=== PATIENT | male | born 1950 | race Caucasian/White ===

== ENCOUNTER 2019-06-04 08:44 | Inpatient (IN) | payer MEDICARE, BC ==
[2019-06-04] VITALS (7 sets, daily range): BP systolic 107–118; BP diastolic 61–69
[~2019-06-04] VITALS: Ht 180.3 cm; Wt 78.5 kg
[~2019-06-04 08:44] MED LIST: AMLO5TAB88 PO; ASPI-1497 PO; ATOR20TA PO; COR6 PO; FURO-151 PO; ISOS30TA6 PO; LOSA25TA3 PO; POTA-9 PO; PROT40 PO; SITA50TA3 PO
[2019-06-04] MEDS ORDERED: FISH1CAP34 PO (09:23)
[2019-06-04] MEDS ORDERED: RANI-655 MT (09:23)
[2019-06-04] MEDS ORDERED: IODIXANOL 320MG/ML 100 ML BOTTLE IV ONE (09:48)
[2019-06-04] MEDS ORDERED: LIDOCAINE HCL 1% 20ML VIAL (Pyxis) INJ ONE (09:48)
[2019-06-04] MEDS ORDERED: MIDAZOLAM HCL 2 MG/2 ML VIAL ONE (09:49)
[2019-06-04] MEDS ORDERED: FENTANYL CITRATE/PF 50MCG/ML 2ML VIAL ONE (09:49)
[2019-06-04] MEDS ORDERED: HEPARIN SODIUM 1,000 UNIT/1ML VIAL IV ONE (10:22)
[2019-06-04] MEDS ORDERED: NICARDIPINE 100MCG/ML 10ML VIAL (CATH LAB) IV ONE (10:22)
[2019-06-04] MEDS ORDERED: NITROGLYCERIN 50MCG/ML 10ML VIAL (CATH LAB) IV ONE (10:22)
[2019-06-04] MEDS ORDERED: IOHEXOL-300 100 ML BOTTLE ONE (10:34)
[2019-06-04] MEDS ORDERED: CLOPIDOGREL 75MG TABLET ONE (10:56)
[2019-06-04] MEDS ORDERED: ASPIRIN 325MG EC TABLET PO ONE (10:57)
[2019-06-04] MEDS ORDERED: ACETAMINOPHEN 325MG TABLET PO PRN (11:00)
[2019-06-04] MEDS ORDERED: ATROPINE SULFATE 1MG/10ML SYR IV PRN (11:00)
[2019-06-04] MEDS ORDERED: ONDANSETRON HCL 4MG/2ML INJ IV PRN (11:00)
[2019-06-05] VITALS (8 sets, daily range): BP systolic 103–140; BP diastolic 59–76
[2019-06-05 07:06] LABS: BASOPHILS % 0.7 % (0.0-2.0); HEMATOCRIT. 38.2 % (42.0-52.0); LYMPHOCYTES % 23.7 % (20.0-50.0); MEAN CORPUSCULAR HEMOGLOBIN 31.4 pg (28.0-32.0); MEAN CORPUSCULAR VOLUME 91.9 fL (80.0-94.0); MEAN PLATELET VOLUME 9.8 fl (7.4-10.4); MONOCYTES % 6.3 % (2.0-8.0); NEUTROPHILS % 61.3 % (40.0-76.0); PLATELET 176 x1000/uL (130-400); RED BLOOD CELL COUNT 4.16 mill/uL (4.7-6.1); RED CELL DISTRIBUTION WIDTH 13.1 % (11.6-14.6)
[2019-06-05] MEDS ORDERED: CLOPIDOGREL 75MG TABLET PO SCH (09:00)
[2019-06-05] MEDS ORDERED: ASPIRIN 325MG TABLET PO SCH (09:00)
== END 2019-06-05 11:30 | disposition home or self-care (01) | DRG 247 ==
LOC: CCL 08:44 → 3WST 08:45
PROVIDERS: ADMIT Specialist; ATTEND Specialist
PROC: 4A023N7 Measurement of Cardiac Sampling and Pressure, Left Heart, Percutaneous Approach (ICD-10-PCS; principal; 2019-06-04)
PROC: 027034Z Dilation of Coronary Artery, One Artery with Drug-eluting Intraluminal Device, Percutaneous Approach (ICD-10-PCS; 2019-06-04)
PROC: B211YZZ Fluoroscopy of Multiple Coronary Arteries using Other Contrast (ICD-10-PCS; 2019-06-04)
DX: I25.110 Atherosclerotic heart disease of native coronary artery with unstable angina pectoris (principal); I44.0 Atrioventricular block, first degree; I35.8 Other nonrheumatic aortic valve disorders; F17.210 Nicotine dependence, cigarettes, uncomplicated; I13.10 Hypertensive heart and chronic kidney disease without heart failure, with stage 1 through stage 4 chronic kidney disease, or unspecified chronic kidney disease; E11.22 Type 2 diabetes mellitus with diabetic chronic kidney disease; K21.9 Gastro-esophageal reflux disease without esophagitis; E78.5 Hyperlipidemia, unspecified; N18.9 Chronic kidney disease, unspecified; I25.2 Old myocardial infarction; Z82.49 Family history of ischemic heart disease and other diseases of the circulatory system; Z82.3 Family history of stroke; Z79.82 Long term (current) use of aspirin; Z79.02 Long term (current) use of antithrombotics/antiplatelets
CPT/HCPCS: 36415; 80048; 82962; 85025; 85347; 92928; 93005; 93454; C1769; C1874; C1887; C1893; J1644; J2250; J3010; J3490; Q9967